=== PATIENT | male | born 1960 | race Caucasian/White ===

== ENCOUNTER 2017-05-09 07:56 | Outpatient (CLI) | payer OTHER ==
--- NOTE | 2017-05-09 13:03 | XRAY Report ---
TWO-VIEW CHEST: 05/09/2017 CLINICAL INDICATION: Shortness of breath, COPD. COMPARISON: 10/31/2014 FINDINGS: Frontal and lateral views of the chest demonstrate a normal cardiac silhouette. The lungs are hyperinflated, but clear. No effusion or pneumothorax is present. IMPRESSION: COPD, BUT NO EVIDENCE OF ACUTE CARDIOPULMONARY DISEASE. JOB #: [id number] EXT JOB #:[id number]
== END 2017-05-09 07:57 | disposition home or self-care (01) ==
LOC: DI 07:56
PROVIDERS: ATTEND Nurse Practitioner Family
DX: J44.9 Chronic obstructive pulmonary disease, unspecified (principal)
CPT/HCPCS: 71020

== ENCOUNTER 2020-10-27 12:48 | Outpatient (CLI) | payer OTHER ==
--- NOTE | 2020-10-27 13:24 | CT Report ---
PROCEDURE: Abdomen/Pelvis WO INDICATIONS: RT FLANK PAIN TECHNIQUE: Noncontrast 5 mm thick sections acquired from the diaphragms to the symphysis. 5 mm coronal and sagi ttal reformats were then performed. For radiation dose reduction, the following was used: automated exposure control, adjustment of mA and/or kV according to patient size. COMPARISON: None. FINDINGS: Image quality: Excellent. ABDOMEN: Lung bases: Lung bases are clear. Heart size is normal. Urinary tract: No urinary tract calculus identified. No hydroureteronephrosis. Urinary bladder unrema rkable. There are multiple left renal cysts, including a predominantly mesophytic cyst in the interpo lar region measuring approximately 3.5 cm and a predominantly exophytic cyst in the upper pole extend ing into the pelvis measuring up to 6.5 cm. Remaining solid abdominal viscera: Liver and spleen are normal in size. Gallbladder is contracted an d unremarkable Pancreas is normal in contours. No adrenal nodules. Kidneys are normal in size, wit hout hydronephrosis or nephrolithiasis. Peritoneum and bowel: Unenhanced bowel loops demonstrate normal wall thickness and caliber. No free fluid or air. Nodes and vessels: No retroperitoneal or mesenteric adenopathy by size criteria. Aorta and inferior vena cava are normal in caliber. Miscellaneous: No ventral hernias. PELVIS: Genitourinary: Bladder wall thickness is normal. Miscellaneous: No inguinal hernias or adenopathy. Bones: No suspicious bony lesions. No vertebral body compression fractures. IMPRESSION: No findings to explain right flank pain. Specifically, no hydroureteronephrosis or urinary tract calc ulus. Multiple left renal cysts. These appear to be simple although without the benefit of IV contrast thi s is not definitive. Renal ultrasound is recommended to further assess. Reviewed by: Param Miles MD on 10/27/2020 1:22 PM PST Approved by: Param Miles MD on 10/27/2020 1:22 PM PST Station ID: [id number]
== END 2020-10-27 12:49 | disposition home or self-care (01) ==
LOC: DI 12:48
PROVIDERS: ATTEND Nurse Practitioner Family
DX: Q61.02 Congenital multiple renal cysts (principal)
CPT/HCPCS: 74176

== ENCOUNTER 2020-11-24 11:42 | Outpatient (CLI) | payer OTHER ==
--- NOTE | 2020-11-25 10:11 | Ultrasound Report ---
PROCEDURE: Retroperitoneal INDICATIONS: MULTIPLE RENAL CYSTS TECHNIQUE: Real-time scanning was performed of the retroperitoneal organs, with image documentation. COMPARISON: CT of abdomen and pelvis dated 10/27/2020. FINDINGS: Kidneys: Kidneys are normal in size. Right kidney measures 10.9 cm long; left kidney measures 10.5 cm long. Right renal cortical thickness is 0.9 cm; left renal cortical thickness is 0.8 cm. No hydro nephrosis. Multiple punctate microcalcifications are seen scattered in bilateral renal parenchyma. A 1.3 x 0.8 x 0.7 cm right peripelvic cyst is seen. Multiple left renal cysts are also noted measures u p to 6.1 x 5.4 x 6.1 cm in upper pole of left kidney. 5 x 4 x 5 mm nonobstructing stone is seen in up per to midpole of left kidney. 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 Prevoid bladder volume is 213 cc. Postvoid residual is 103 cc. Bilateral ureteral jets are noted duri ng the scan. No discrete bladder wall mass. Trabeculated appearance of bladder wall is noted. Miscellaneous: No free abdominal fluid. IMPRESSION: 1. Bilateral renal cysts and nonobstructing renal calculi as above. No hydronephrosis. 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 No other solid appearing renal lesion is seen. 2. Moderate amount of postvoid residual and trabeculated bladder wall concerning for chronic urinary outlet obstruction. No discrete bladder wall mass is seen. Reviewed by: Prashanth Barriga MD on 11/25/2020 10:10 AM PST Approved by: Prashanth Barriga MD on 11/25/2020 10:10 AM PST Station ID: [id number]
== END 2020-11-24 11:43 | disposition home or self-care (01) ==
LOC: DI 11:42
PROVIDERS: ATTEND Nurse Practitioner Family
DX: N28.1 Cyst of kidney, acquired (principal); N32.89 Other specified disorders of bladder; N21.0 Calculus in bladder; D17.71 Benign lipomatous neoplasm of kidney